=== PATIENT | male | born 1950 | race Caucasian/White ===

== ENCOUNTER → 2017-02-22 | Outpatient (CLI) | payer OTHER ==
--- NOTE | 2017-02-22 06:49 | DIAGNOSTIC IMAGING REPORT ---
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 COMPARISON: None. FINDINGS: There are no radiopaque foreign bodies identified within the orbits. IMPRESSION: No radiopaque foreign bodies identified within the orbits. Electronically signed by: Aaron Gutierrez M.D. 02/22/2017 6:48 AM Dictated Date/Time: 02/22/2017 6:48 AM
--- NOTE | 2017-02-22 08:12 | DIAGNOSTIC IMAGING REPORT ---
MRI THE RIGHT KNEE NO CONTRAST CLINICAL HISTORY: Right knee pain status post trauma. COMPARISON STUDY: No previous studies for comparison. FINDINGS: There is moderate diffuse soft tissue edema. There is metallic artifact involving the soft tissues anterior to the infrapatellar tendon. The medial and lateral collateral ligaments are intact. There are extensive degenerative signal changes within the menisci. There is a root tear the medial meniscus. There is medial joint compartment chondrosis. Posterior cruciate ligament appears intact. There is diffuse increased signal within the anterior cruciate ligament. Mucoid degeneration is favored over a tear. There is a large popliteal cyst. There is a small joint effusion. There are subchondral cystic changes within the medial tibial plateau. IMPRESSION: 1. Root tear the medial meniscus 2. Large popliteal cyst and small joint effusion. 3. No evidence of collateral ligament disruption 4. Diffuse increased signal within the anterior cruciate ligament. Mucoid degeneration is favored over a tear. 5. Medial joint compartment chondrosis. Electronically signed by: Aaron Gutierrez M.D. 02/22/2017 8:11 AM Dictated Date/Time: 02/22/2017 7:33 AM
== END | disposition home or self-care (01) ==
LOC: C.MRI 06:14
PROVIDERS: ATTEND Nurse Practitioner Family
DX: M25.561 Pain in right knee (principal); R60.0 Localized edema; S83.241A Other tear of medial meniscus, current injury, right knee, initial encounter; X50.9XXA Other and unspecified overexertion or strenuous movements or postures, initial encounter; Y99.0 Civilian activity done for income or pay; M71.21 Synovial cyst of popliteal space [Baker], right knee; M25.461 Effusion, right knee; R93.7 Abnormal findings on diagnostic imaging of other parts of musculoskeletal system; M94.8X8 Other specified disorders of cartilage, other site

== ENCOUNTER 2017-04-15 00:38 | Emergency (ER) | payer OTHER ==
[~2017-04-15] VITALS: Ht 177.8 cm; Wt 92.8 kg
[2017-04-15 00:40] VITALS: TEMP 36.5; Ht 177.8 cm; Wt 92.8 kg
--- NOTE | 2017-04-15 00:47 | EMERGENCY ROOM VISIT NOTE ---
History Report prepared by [place]: Genaro Landon Under the Supervision of: Dr. Jay Bullock M.D. First contact with patient: 00:41 Chief Complaint: ALCOHOL OVERDOSE Stated Complaint: ALCOHOL/FALL History of Present Illness The patient is a 66 year old male who presents to the Emergency Room with complaints of a fall that occurred [employer]LE [employer]. He is not in any pain at this time. Per the patient's [id number], he fell backwards at ground level. He hit his head on the back of a dump truck. He then passed out for between 1 and 2 minutes. He drinks alcohol everyday, including this evening. He denies any blood thinners and illicit drug use. He has a past medical history of hypertension. He is currently taking Norvasc and Atenolol. He denies any neck pain. 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 A total of 10 systems reviewed and were otherwise negative. Past Medical & Surgical Medical Problems: (1) HTN (hypertension) Family History Omitted secondary to age. Social History Smoking Status: Never Smoker Smokeless Tobacco Use: No Alcohol Use: heavy Drug Use: none Marital Status: Housing Status: lives with significant other Physical Exam Vital Signs Date Time Temp Pulse Resp B/P (MAP) Pulse Ox O2 Delivery O2 Flow Rate FiO2 04/15/17 01:36 81 16 133/80 95 Room Air 04/15/17 00:49 97 Room Air 04/15/17 00:45 81 04/15/17 00:40 36.5 85 20 149/78 96 Room Air Physical Exam GENERAL: Patient is well appearing and in no acute distress. Intoxicated. Smells of alcohol. HEAD: NC. Moderate posterior scalp contusion/abrasion. No laceration. FACE: No deformity/bruising, no tenderness. EYES: Pupils equal and reactive. No scleral icterus. Normal EOM. ENT: no hemotympanum, moist mucous membranes, no nasal congestion/hematoma. NECK: No stridor, no adenopathy, no tenderness or step-off of the posterior C- spine, trachea is midline. CHEST: Non-tender, equal chest rise with breath. Clavicles stable/non-tender. LUNGS: Clear to auscultation bilaterally, no wheeze, no rhonchi, breath sounds equal. No dyspnea. HEART: Regular rate and rhythm. No murmurs/gallops/rhonchi appreciated. ABDOMEN: Soft, nontender, bowel sounds positive, no peritonitis. No masses appreciated. BACK: Nontender with palpation, no step-offs. PELVIS: Stable. Non-tender EXTREMITIES: No cyanosis or edema, full range of motion of all the joints without pain or difficulty, no signs for acute trauma. Distal pulses intact. SKIN: No rash, no jaundice, no diaphoresis. NEUROLOGIC: Oriented x 3, no acute motor or sensory deficits, no focal weakness. Hard of hearing. Medical Decision & Procedures ER Provider Diagnostic Interpretation: Radiology results and stated below per my review and radiologist interpretation: CT SCAN OF THE BRAIN WITHOUT IV CONTRAST CLINICAL HISTORY: Intoxication. Fall with head injury. COMPARISON STUDY: No priors. TECHNIQUE: Unenhanced axial CT scan of the brain is performed from the vertex to the skull base. CT DOSE: Reported separately under the concurrently performed CT scan of the cervical spine. FINDINGS: Brain parenchyma: There is minimal subcortical and periventricular microangiopathic change. There is no hemorrhage, mass effect, or evidence of acute territorial ischemia by CT criteria. Blair-white matter is preserved. No extra-axial fluid collection is seen. Ventricles, sulci, cisterns: Normal in configuration. Intracranial vasculature: There is mild atherosclerotic calcification of the cavernous carotid arteries. Calvarium: There is no depressed calvarial fracture. Soft tissues: There is a posterior scalp contusion. Sinuses and mastoids: The visualized paranasal sinuses are clear. The mastoid air cells are well pneumatized. Orbits: The bony orbits are grossly intact. IMPRESSION: 1. There is no hemorrhage, mass effect, or evidence of acute territorial ischemia by CT criteria. 2. Posterior scalp injury. No depressed calvarial fracture is seen. Electronically signed by: Hebert Quinn M.D. 04/15/2017 1:13 AM Dictated Date/Time: 04/15/2017 1:[address] SCAN OF THE CERVICAL SPINE CLINICAL HISTORY: Intoxication. Fall with head injury. COMPARISON STUDY: No priors. TECHNIQUE: CT scan of the cervical spine is performed from the skull base to the upper thoracic spine. Images are reviewed in the axial, sagittal, and coronal planes. IV contrast was not administered for this examination. CT DOSE: 1125.86 mGy.cm FINDINGS: Skeletal structures: The skeletal structures are well mineralized. There is no evidence of fracture or subluxation involving the cervical spine. Vertebral body height is maintained. There is minimal retrolisthesis at C4-C5. Alignment is otherwise preserved. There is straightening of the cervical lordosis with reversal centered at C3-C4. The odontoid process and lateral masses are intact. The atlantoaxial articulation is preserved noting productive degenerative change. The spinous processes appear intact. Anterior osteophytes are seen from C4 through C7. There is mild multilevel cervical spondylosis. Uncovertebral and facet arthropathy are noted at several levels. Intervertebral discs: Mild disc space narrowing is seen at C3-C4. The disc spaces are otherwise maintained. Central canal: A posterior disc osteophyte complex at C3-C4 likely contributes to mild acquired compromise of the central canal. Soft tissues: The prevertebral and paraspinous soft tissues are within normal limits. There is atherosclerotic calcification of the carotid bulbs. Numerous calcified tonsilliths are observed. Calvarium: The visualized calvarium at the skull base appears intact. Brain parenchyma: Partially visualized brain parenchyma the skull base is within normal limits. Mastoids: The mastoid air cells are well pneumatized. Lung apices: Clear as visualized. IMPRESSION: 1. There is no evidence of fracture or subluxation involving the cervical spine. 2. Spondylotic change as above. Electronically signed by: Hebert Quinn M.D. 04/15/2017 1:17 AM Dictated Date/Time: 04/15/2017 1:10 AM Laboratory Results 04/15/17 00:48 Test 04/15/17 00:48 Anion Gap 7.0 mmol/L (3-11) Est Creatinine Clear Calc Drug Dose 86.6 ml/min Estimated GFR () 95.1 Estimated GFR (Non- 82.0 BUN/Creatinine Ratio 15.1 (10-20) Calcium Level 9.6 mg/dl (8.5-10.1) Total Bilirubin 0.3 mg/dl (0.2-1) Direct Bilirubin < 0.1 mg/dl (0-0.2) Aspartate Amino Transf (AST/SGOT) 25 U/L (15-37) Alanine Aminotransferase (ALT/SGPT) 29 U/L (12-78) Alkaline Phosphatase 99 U/L (45-117) Total Protein 7.4 gm/dl (6.4-8.2) Albumin 3.9 gm/dl (3.4-5.0) Ethyl Alcohol mg/dL 230.0 mg/dl (0-3) Laboratory results as reviewed by me. ED Course 0041: The patient was evaluated in room A9. A complete history and physical exam was performed. 0133: He feels fine at this time. He would like to go home. His family is at bedside. They feel comfortable taking care of him at home. 0140: Reevaluated the patient. Discussed results and discharge instructions: He and his family verbalized understanding and agreement. The patient is ready for discharge. Medical Decision Differential: Intracranial Injury, Cervical Injury, Intrathoracic/Abdominal Injury, Neurologic Injuries, Fractures/Dislocations, Lacerations, Tetanus Status , amongst other pathologies entertained. Medication Reconciliation: I attest that I have personally reviewed the patient 's current medication list. Blood pressure screening: Patient was found to have an elevated blood pressure and was referred to their primary doctor for recheck and further treatment. Pleasant, moderately intoxicated 66 yr old male who was at [employer] with family when tripped backwards, falling and striking posterior head off dump- truck. Short LOC after this with no further complaints. Adamant of no cp, sob nor preceding symptoms. States it was trip and fall which multiple witnesses corroborate. No midline TTP neck and with negative CT neck cleared his cspine. CT head negative. No laceration requiring repair. Patient feeling well with no complaints. Labs unremarkable and patient's post-ed care reviewed with family who feel comfortable with him at home. Impression Primary Impression: Head injury, closed, with brief LOC Additional Impressions: Alcohol intoxication Fall Scribe Attestation The scribe's documentation has been prepared under my direction and personally reviewed by me in its entirety. I confirm that the note above accurately reflects all work, treatment, procedures, and medical decision making performed by me. Departure Information Dispostion Home / Self-Care Referrals No Doctor, Assigned (PCP) Forms HOME CARE DOCUMENTATION FORM, IMPORTANT VISIT INFORMATION Patient Instructions ED Head Injury Closed, My [facility] Problem Qualifiers Additional Impressions: Alcohol intoxication Complication of substance-induced condition: uncomplicated Qualified Codes: F10.920 - Alcohol use, unspecified with intoxication, uncomplicated
[2017-04-15 00:49] VITALS: O2SAT 97
--- NOTE | 2017-04-15 01:15 | DIAGNOSTIC IMAGING REPORT ---
CT SCAN OF THE BRAIN WITHOUT IV CONTRAST CLINICAL HISTORY: Intoxication. Fall with head injury. COMPARISON STUDY: No priors. TECHNIQUE: Unenhanced axial CT scan of the brain is performed from the vertex to the skull base. CT DOSE: Reported separately under the concurrently performed CT scan of the cervical spine. FINDINGS: Brain parenchyma: There is minimal subcortical and periventricular microangiopathic change. There is no hemorrhage, mass effect, or evidence of acute territorial ischemia by CT criteria. Blair-white matter is preserved. No extra-axial fluid collection is seen. Ventricles, sulci, cisterns: Normal in configuration. Intracranial vasculature: There is mild atherosclerotic calcification of the cavernous carotid arteries. Calvarium: There is no depressed calvarial fracture. Soft tissues: There is a posterior scalp contusion. Sinuses and mastoids: The visualized paranasal sinuses are clear. The mastoid air cells are well pneumatized. Orbits: The bony orbits are grossly intact. IMPRESSION: 1. There is no hemorrhage, mass effect, or evidence of acute territorial ischemia by CT criteria. 2. Posterior scalp injury. No depressed calvarial fracture is seen. Electronically signed by: Hebert Quinn M.D. 04/15/2017 1:13 AM Dictated Date/Time: 04/15/2017 1:11 AM
[2017-04-15 01:16] LABS: ALT/SGPT 29 U/L (12-78); BLOOD UREA NITROGEN 15 mg/dl (7-18); BUN/CREATININE RATIO 15.1 (10-20); CALCIUM 9.6 mg/dl (8.5-10.1); CARBON DIOXIDE 27 mmol/L (21-32); CHLORIDE 101 mmol/L (98-107); CREATININE 0.96 mg/dl (0.60-1.40); GLUCOSE 97 mg/dl (70-99); POTASSIUM 4.1 mmol/L (3.5-5.1); SODIUM 135 mmol/L (136-145)
--- NOTE | 2017-04-15 01:18 | DIAGNOSTIC IMAGING REPORT ---
CT SCAN OF THE CERVICAL SPINE CLINICAL HISTORY: Intoxication. Fall with head injury. COMPARISON STUDY: No priors. TECHNIQUE: CT scan of the cervical spine is performed from the skull base to the upper thoracic spine. Images are reviewed in the axial, sagittal, and coronal planes. IV contrast was not administered for this examination. CT DOSE: 1125.86 mGy.cm FINDINGS: Skeletal structures: The skeletal structures are well mineralized. There is no evidence of fracture or subluxation involving the cervical spine. Vertebral body height is maintained. There is minimal retrolisthesis at C4-C5. Alignment is otherwise preserved. There is straightening of the cervical lordosis with reversal centered at C3-C4. The odontoid process and lateral masses are intact. The atlantoaxial articulation is preserved noting productive degenerative change. The spinous processes appear intact. Anterior osteophytes are seen from C4 through C7. There is mild multilevel cervical spondylosis. Uncovertebral and facet arthropathy are noted at several levels. Intervertebral discs: Mild disc space narrowing is seen at C3-C4. The disc spaces are otherwise maintained. Central canal: A posterior disc osteophyte complex at C3-C4 likely contributes to mild acquired compromise of the central canal. Soft tissues: The prevertebral and paraspinous soft tissues are within normal limits. There is atherosclerotic calcification of the carotid bulbs. Numerous calcified tonsilliths are observed. Calvarium: The visualized calvarium at the skull base appears intact. Brain parenchyma: Partially visualized brain parenchyma the skull base is within normal limits. Mastoids: The mastoid air cells are well pneumatized. Lung apices: Clear as visualized. IMPRESSION: 1. There is no evidence of fracture or subluxation involving the cervical spine. 2. Spondylotic change as above. Electronically signed by: Hebert Quinn M.D. 04/15/2017 1:17 AM Dictated Date/Time: 04/15/2017 1:10 AM
[2017-04-15 01:19] LABS: ALKALINE PHOSPHATASE 99 U/L (45-117); AST/SGOT 25 U/L (15-37)
[2017-04-15 01:36] VITALS: BP 133/80; PULSE 81; O2SAT 95
== END 2017-04-15 01:40 | disposition home or self-care (01) ==
LOC: EDBD 00:38 → C.EDA 00:39
DX: S06.9X1A Unspecified intracranial injury with loss of consciousness of 30 minutes or less, initial encounter (principal); F10.920 Alcohol use, unspecified with intoxication, uncomplicated; W01.10XA Fall on same level from slipping, tripping and stumbling with subsequent striking against unspecified object, initial encounter; I10 Essential (primary) hypertension